=== PATIENT | female | born 1940 | race Caucasian/White ===

== ENCOUNTER 2017-12-07 13:11 | Outpatient (CLI) | payer MEDICARE, OTHER ==
--- NOTE | 2017-12-07 14:41 | RAD ---
CHEST PA AND LATERAL: History: 77-year-old female with history of dyspnea. Comparison: PET CT 11-11-13 FINDINGS: There is some biapical pleural thickening with some linear and irregular nodular parenchymal changes in both the right upper lobe and left upper lobe. I feel that these bilateral densities may well have been present on the prior CT. There are also some minimal increased markings in the region of the li ngula and right middle lobe, possibly some very mild scarring. Right breast augmentation prosthesis w ith a calcified fibrous capsule. No overt confluent pneumonia. No cardiomegaly. IMPRESSION: Scattered linear and nodular parenchymal changes as well as some apical pleural thickening. Compariso n to the prior PET scan suggest that these changes may possibly have been present before. Minimal inc reased markings in the right middle lobe and lingula. No confluent pneumonia. If there is concern that any of these nodular densities are new or if the patient has any significant new symptoms, a follow up dedicated chest CT scan should be considered. POS: Larry
== END 2017-12-07 13:12 | disposition home or self-care (01) ==
LOC: RAD 13:11
PROVIDERS: ATTEND Internal Medicine Critical Care Medicine
DX: R06.00 Dyspnea, unspecified (principal); J92.9 Pleural plaque without asbestos; R91.8 Other nonspecific abnormal finding of lung field
CPT/HCPCS: 71046

== ENCOUNTER 2020-08-12 08:34 | Day surgery (SDC) | payer MEDICARE, OTHER ==
[2020-08-07 12:14] VITALS: BMI 20.5
[2020-08-12 08:30] LABS: #Basophils 0.1 thou/uL (0.0-0.2); #Eosinphils 0.2 thou/uL (0.0-0.7); #Lymphocytes 2.4 thou/uL (1.20-3.40); #Monocytes 0.7 thou/uL (0.11-0.59); #Neutrophils 7.2 thou/uL (1.40-6.50); %Basophils 0.8 % (0.0-1.0); %Eosinophils 1.9 % (0.0-10.0); %Monocytes 6.4 % (0.0-10.0); %Neutrophils 67.9 % (42.0-75.0); Hemoglobin 13.4 g/dL (12.0-16.0); Mean Corpuscular HGB CONC 32.2 g/dL (32.0-36.0); Mean Corpuscular Hemoglobin 30.7 pg (27.0-31.0); Mean Corpuscular Volume 95.4 fL (78.0-98.0); Mean Platelet Volume 8.2 fL (7.4-10.4); Platelet Count 238 thou/uL (130-400); RBC Distribution Width 13.4 % (11.5-14.5); Red Blood Cell (RBC) Count 4.37 mill/uL (4.20-5.40); White Blood Cell (WBC) Count 10.6 thou/uL (4.8-10.8)
[2020-08-12 08:59] LABS: PTT 27.2 sec (22.9-36.1); Prothrombin Time 12.7 sec (12.0-14.7)
[2020-08-12 11:02] VITALS: BP 160/86; TEMP 99
== END 2020-08-12 13:10 | disposition home or self-care (01) ==
LOC: CT 08:34
PROVIDERS: ATTEND Internal Medicine Critical Care Medicine
PROC: 0BBC3ZX Excision of Right Upper Lung Lobe, Percutaneous Approach, Diagnostic (ICD-10-PCS; principal; 2020-08-12)
DX: C34.11 Malignant neoplasm of upper lobe, right bronchus or lung (principal); F17.210 Nicotine dependence, cigarettes, uncomplicated; G89.29 Other chronic pain; M54.5 Low back pain; J44.9 Chronic obstructive pulmonary disease, unspecified; Z85.3 Personal history of malignant neoplasm of breast; Z79.899 Other long term (current) drug therapy; Z88.0 Allergy status to penicillin; Z88.1 Allergy status to other antibiotic agents; Z88.2 Allergy status to sulfonamides; Z91.013 Allergy to seafood; Z91.030 Bee allergy status; Z91.038 Other insect allergy status; Z91.041 Radiographic dye allergy status; Z98.1 Arthrodesis status
CPT/HCPCS: 32408; 71045; 77002; 85025; 85610; 85730; 88305; 88313; 88333; 88334; 88341; 88342

== ENCOUNTER 2021-01-26 11:09 | Outpatient (CLI) | payer MEDICARE, OTHER | END 2021-01-26 11:10 | disposition home or self-care (01) | LOC: PET 11:09 | PROVIDERS: ATTEND Internal Medicine Hematology & Oncology | DX: C34.01 Malignant neoplasm of right main bronchus (principal); R91.8 Other nonspecific abnormal finding of lung field | CPT/HCPCS: 78815; A9552 ==